=== PATIENT | female | born 1960 | race African-American/Black ===

== ENCOUNTER 2022-06-08 13:37 | Outpatient (CLI) | payer MEDICARE, OTHER, SELFPAY ==
--- NOTE | 2022-06-08 | ECG_ITS ---
Measurements Intervals [place] Rate: 70 P: 67 NM: 222 QRS: 32 QRSD: 87 T: 91 QT: 396 QTc: 429 Interpretive Statements SINUS RHYTHM WITH FIRST DEGREE AV BLOCK NONSPECIFIC T-WAVE ABNORMALITY BORDERLINE ECG NO PREVIOUS ECG AVAILABLE FOR COMPARISON Electronically Signed On 06-08-2022 15:43:19 CDT by Yury Bella M.D.
--- NOTE | ~2022-06-08 | CT_ITS ---
EXAMINATION: CT LE LT wo con DATE: 06/08/2022 15:43 INDICATION: Left knee osteoarthritis for preoperative planning. TECHNIQUE: High resolution computed tomography (CT) of the left lower limb from the hip through the a nkle was performed without intravenous contrast. Additional sagittal and coronal reconstructions were performed. Automated exposure control and iterative reconstruction technique were employed. The dose -length product was 1754.45 mGy-cm. COMPARISON: None FINDINGS: Severe lateral compartment predominant osteoarthritis at the left knee with 9 degrees genu valgus. Mi ld to moderate joint space narrowing at the lateral side of the left patellofemoral compartment. Smal l cortical irregularity along the anterior weightbearing medial femoral condyle consistent with overl olvin high-grade chondromalacia. Moderate-sized left knee joint effusion. Moderate osteoarthritis at the left hip with anterosuperior predominant nonuniform joint space narrow ing and prominent subarticular cystic change at the anterosuperior acetabulum. Additional polyarticul ar osteoarthritis at the left foot, moderate severity with subarticular cystic changes at the first t arsal metatarsal joint and otherwise mild. Moderate-sized Achilles and plantar calcaneal spurs. The u terus is not identified and has likely been surgically resected. No pathologically enlarged right pel shonda or inguinal lymphadenopathy. IMPRESSION: 1. Polyarticular osteoarthritis throughout the left lower limb, moderate at the left hip, severe at t he lateral compartment of the left knee, moderate at the first tarsal metatarsal joint and otherwise mild. Reviewed, dictated and finalized at location A. IMPRESSION: 1. Polyarticular osteoarthritis throughout the left lower limb, moderate at the left hip, severe at the lateral compartment of the left knee, moderate at the first tarsal metatarsal joint and otherwise mild.
[2022-06-08 15:40] LABS: Hematocrit 39.3 % (37.0-47.0); Hemoglobin 12.8 g/dL (12.0-15.0)
[2022-06-08 15:44] LABS: Albumin Level 4.2 g/dL (3.5-5.1); Estimated Glomerular Filt Rate > 60; Glucose 94 mg/dL (65-110)
== END 2022-06-08 13:38 | disposition home or self-care (01) ==
LOC: ANHIMG 13:48
PROVIDERS: Visit Provider Orthopaedic Surgery
DX: Z01.818 Encounter for other preprocedural examination (principal); I44.0 Atrioventricular block, first degree; M77.32 Calcaneal spur, left foot; I26.99 Other pulmonary embolism without acute cor pulmonale; E78.5 Hyperlipidemia, unspecified; M17.0 Bilateral primary osteoarthritis of knee
CPT/HCPCS: 36415; 73700; 82040; 82565; 82947; 85014; 85018; 93005

== ENCOUNTER 2022-07-12 13:57 | Outpatient (CLI) | payer MEDICARE, OTHER, SELFPAY ==
[2022-07-12 15:40] LABS: Basophils Percent Auto 0.4 % (0.2-1.2); Eosinophils Absolute Auto 0.4 K/mm3 (0-0.3); Eosinophils Percent Auto 5.1 % (0-4.4); Hematocrit 40.1 % (37.0-47.0); Hemoglobin 13.2 g/dL (12.0-15.0); Immature Granulocyte Absolute 0.01 K/mm3 (0.00-0.031); Immature Granulocyte Percent A 0.1 % (0-0.5); Lymphocytes Absolute Auto 1.98 K/mm3 (0.9-3.2); Lymphocytes Percent Auto 26.1 % (18.3-44.2); Mean Corpuscular HGB Conc 32.9 g/dl (32-36); Mean Corpuscular Hemoglobin 29.5 pg (26-34); Mean Corpuscular Volume 89.5 fl (80-100); Mean Platelet Volume 10.8 fl (7.4-10.4); Monocytes Absolute Auto 0.5 K/mm3 (0.1-0.6); Monocytes Percent Auto 6.6 % (2.6-8.5); Neutrophils Absolute Auto 4.7 K/mm3 (1.3-6.7); Neutrophils Percent Auto 61.7 % (45.5-73.1); Platelet Count Result 200 k/mm3 (150-375); Red Blood Count 4.48 M/mm3 (4.2-5.4); Red Cell Distribution Width 13.3 % (11.5-14.5); White Blood Count 7.6 K/mm3 (4.5-10.0)
[2022-07-12 16:06] LABS: Urine Cotinine NEGATIVE
== END 2022-07-12 13:58 | disposition home or self-care (01) ==
LOC: ANHSURGERY 14:11
PROVIDERS: Visit Provider Orthopaedic Surgery
DX: Z01.818 Encounter for other preprocedural examination (principal); M17.12 Unilateral primary osteoarthritis, left knee; Z51.81 Encounter for therapeutic drug level monitoring; Z79.899 Other long term (current) drug therapy
CPT/HCPCS: 80307; 83036; 85025; 87081

== ENCOUNTER 2022-08-03 00:24 | Day surgery (SDC) | payer MEDICARE, OTHER, SELFPAY ==
[2022-07-12 14:18] VITALS: BMI 39.9
--- NOTE | 2022-07-12 15:03 | PC.NURSE ---
Report to the Outpatient Waiting Room, entrance under the green pavilion located off [facility], at time _0600 on date ___08/03/22____. OR Time: _729 . Time changes happen often and if your time is changed the preop area will call you the afternoon before. - You and your visitor will be asked to self-screen and do not enter if you have any COVID symptoms. - Only one visitor and NO children visitors are allowed at this time. - The patient visitor is requested to leave or wait in car when not with patient due to restrictions. - A mask is required within the hospital. Patients may have clear liquids (water, carbonated beverages, clear teas, apple juice) until 3 hours prior to surgery with a maximum of 20 ounces. - No food from midnight until time of surgery - Infants may have breast milk until 4 hours before surgery, formula 6 hours prior to surgery. - Children will be allowed to drink immediately following surgery. If applicable, please bring a bottle or sippy cup to assist with drinking. Juice, water, soda, and popsicles are readily available. For infants on formula, please bring formula the day of surgery. Pacifiers are allowed. Take the following medications with a SIP of water the morning of surgery: __NONE Medications to discontinue per physician __ASPIRIN AND ADVIL 7 DAYS PRE OP. ALL VITAMINS AND SUPPLEMENTS 3 DAYS PRE OP Date to take last dose__ASPIRIN/ADVIL 07/26/22 ALL VIT/SUPP 07/30/22 Please no make-up, nail c[place] islander, hairspray, perfume, deodorant, or body powder the day of surgery. No jewelry (including any body piercings) or valuables the day of surgery, leave them at home. Please take a shower or bath the night before, or the morning of, surgery with an antibacterial soap. Wear comfortable, loose fitting clothing. Children are encouraged to wear pajamas. - Jewelry must be removed prior to entering the operating room. Rings and piercings that are not removed may be cut off. - The hospital will not accept responsibility for valuables. - Please leave all valuables, including medications, at home the day of surgery. If you are going home after surgery, a licensed drivers' cash clerk must drive you home. - NO public transportation without another adult. - We recommend that an adult stay with you for 24 hours following discharge. - We also recommend that you do not drive, make important decision, drink alcoholic beverages, or take any drugs that were not prescribed by your health care provider for at least 24 hours after your discharge time. For Pediatric surgeries, we recommend two adults accompany the child home (only one inside the building at this time). Follow any additional instructions given to you from your surgeon. If you or anyone in your household have experienced Covid symptoms in the past week, please notify your surgeon or the nurse liaison at the phone number below for possible testing. VERBAL AND WRITTEN instructions given to __PATIENT and asked if any additional questions and then verbalized understanding. Patient advised to call surgeon office or pre surgery nurse liaison [phone] if any additional questions.
[2022-07-12 15:25] VITALS: BP 134/80; PULSE 80; RESP 18; TEMP 37.2; O2SAT 100
--- NOTE | 2022-08-02 13:10 | WPDANESEPPF ---
Anes - Initial Pre Proc Eval Procedure: Operation Date: 08/03/22 07:30 Proposed Procedures p Custom Total Left Knee Arthroplasty - Wili Pandey MD Date/Time: 08/02/22 13:10 Surgeon: Wili Pandey MD Pre Op Diagnosis: Prim O A Left Knee Patient Data Age: 62 Gender: F Height: 1.65 m Weight: 108.7 kg Last Vital Signs Temp 37.2 C 07/12/22 15:25 Pulse 80 07/12/22 15:25 Resp 18 07/12/22 15:25 BP 134/80 07/12/22 15:25 Pulse Ox 100 07/12/22 15:25 O2 Del Method Room Air 07/12/22 15:25 Allergies Allergy/AdvReac Type Severity Reaction Status Date / Time Penicillins Allergy Intermediate Rash Verified 08/03/22 06:27 sulfamethoxazole Allergy Intermediate Rash Verified 08/03/22 06:27 [From Bactrim] trimethoprim [From Bactrim] Allergy Intermediate Rash Verified 08/03/22 06:27 Home Medications Medication Instructions Recorded Confirmed Type amlodipine 10 mg-benazepril 20 mg 1 cap PO DAILY 04/12/22 08/03/22 History capsule (Lotrel) cholecalciferol (vitamin D3) 125 125 mcg PO DAILY 04/12/22 08/03/22 History mcg (5,000 unit) capsule (Dialyvite Vitamin D) acetaminophen 500 mg tablet 500 mg PO Q6H PRN Pain 07/12/22 08/03/22 History aspirin 81 mg tablet,delayed 81 mg PO DAILY 07/12/22 08/03/22 History release (Adult Low Dose Aspirin) coQ10 (ubiquinol) 200 mg capsule 400 mg PO DAILY 07/12/22 08/03/22 History ferrous sulfate 325 mg (65 mg 325 mg PO DAILY 07/12/22 08/03/22 History iron) tablet ibuprofen 200 mg tablet (Advil) 400 mg PO Q6H PRN Pain 07/12/22 08/03/22 History multivitamin 1 tablet PO DAILY 07/12/22 08/03/22 History omega-3 fatty acids 1,000 mg PO DAILY 07/12/22 08/03/22 History simvastatin 20 mg tablet (Zocor) 20 mg PO DAILY 07/12/22 08/03/22 History Patient hx anesthesia problems: none Family hx anesthesia problems: none Results Review: All pre-operative results and documents have been reviewed as part of the pre-operative evaluation. [facility] Past Medical History Medical History (Updated 08/02/22 @ 13:11 by Jude Fay MD) Hyperlipidemia Hypertension Osteoarthritis of both knees Ovarian ca Pulmonary embolism (~2018) Surgical History Surgical History H/O ileostomy (~2018) H/O: hysterectomy (~2018) Family History Family History Father Cancer Mother ALS (amyotrophic lateral sclerosis) Sibling Cancer Social History Social History Smoking status: Never smoker Additional smoking assessment comments: DENIES ANY FORM OF TOBACCO USE Alcohol intake: unknown Substance use: unknown Living arrangements: with family Spiritual care concerns: Yes (JEHOVAH WITNESS) Anes - Eval Final PreProcedure Day of Procedure 08/02/22 13:10 Patient weight: obese Heart: regular rate and rhythm Lungs: clear to auscultation and normal air movement Airway: Mallampati scale class II Neurological: alert and oriented Last oral intake: >/= 8 hours ASA classification: III Emergent: no Anesthetic plan: proceed Anesthesia type and monitoring: general LMA Results Review: All pre-operative results and documents have been reviewed as part of the pre-operative evaluation. Informed Consent: The patient's anesthetic plan and its attendant risks and benefits were discussed with the patient/family/POA. Questions were solicited and answers provided to the satisfaction of the patient/family/POA.
--- NOTE | 2022-08-02 13:11 | WPDANESPNB ---
Anes - Peripheral Nerve Block Date/Time: 08/02/22 13:11 I have discussed with the patient/family/POA the placement of a peripheral nerve block for post-operative pain management, including associated risks, benefits, complications, and side effects. Alternative methods of post-operative analgesia were detailed. Questions were solicited and answers provided to the satisfaction of the patient/family/POA. Time-Out: A pre-procedural Time-Out was completed immediately before starting the procedure and confirmed: Patient Identification, Site, Procedure, Patient Position and the Availability of Requisite Equipment. Clinical Indications: Acute post-operative pain management requested by the operative surgeon. Nerve Block Insertion Note Anes-nerve block: adductor canal Patient position: supine Skin prep: chlorhexidine Needle: 22 gauge, stimulating, insulated echogenic needle. Needle length: 80 mm Technique: ultrasound Technique comment: in plane Injectate: bupivacaine 0.5% with epi 5 mcg/ml (30cc) Observations: tolerated well Complications: none Procedure start time:: 720 Procedure end time:: 725
[2022-08-03] VITALS (12 sets, daily range): BP systolic 105–140; BP diastolic 68–74; PULSE 75–96; RESP 13–20; TEMP 36.1–37.1; O2SAT 86–100
--- NOTE | ~2022-08-03 | XR_ITS ---
EXAMINATION: XR knee LT 2V DATE: 08/03/2022 10:31 INDICATION: Total left knee arthroplasty. Postop. TECHNIQUE: 2 views of left knee were obtained. COMPARISON: Left knee radiographs 05/15/2022 FINDINGS: There is a total left knee arthroplasty with patellar resurfacing in near-anatomic alignmen t. No fracture. There is gas in the knee joint and soft tissues, consistent with recent surgery. IMPRESSION: 1. Total left knee arthroplasty in near-anatomic alignment. Reviewed, dictated and finalized at location A.
[2022-08-03] MEDS: ACETAMINOPHEN 500 MG TABLET 1000 MG PO (06:31)
[2022-08-03] MEDS: LACTATED RINGERS 1,000 ML 30 ML IV CONT ×2 (06:47→10:12)
[2022-08-03] MEDS: TRANEXAMIC ACID 1,000MG/ISO100 1,000 MG/100 ML BAG 200 MG IVPB (07:08)
--- NOTE | 2022-08-03 07:32 | WPDHPUPDATE1 ---
History and Physical Update Update Date/Time: 08/03/22 07:32 History and Physical has been reviewed, including an updated exam of the patient. There are NO changes in the patient's condition. Risks, benefits, and alternatives have been discussed and questions answered. Patient agrees to proceed with procedure.
[2022-08-03] MEDS: ceFAZolin 2 GM/D5W 50 ML 2 GM/50 ML BAG IVPB ×2 (07:40→16:15)
[2022-08-03] MEDS: GENTAMICIN BONE CEMENT REFOBACIN 1 EACH TOPICAL (08:22)
[2022-08-03] MEDS: TRANEXAMIC ACID 1,000 MG/10 ML AMPUL 1000 MG IV PUSH (09:45)
--- NOTE | 2022-08-03 11:44 | ADMGEN ---
This patient, Juana Mcclure, was admitted to 2 Medical Room 244-. Patient/family oriented to hospital policies and general routines including ID bracelet, bed and alarms, visiting hours, pain management, procedures, bathroom and other care routines, personal items, smoking policy, room service/diet, and visiting hours. Information on how to activate the Rapid Response Team has been discussed. Patient/Family are encouraged to report perceived risks to care and to ask questions if they do not understand what they are told or what they should do.
[2022-08-03] MEDS: ONDANSETRON INJ 4 MG/2 ML VIAL IV PUSH ×2 (12:10→17:26)
[2022-08-03] MEDS: SODIUM CHLORIDE 0.9% IV 1,000 ML 125 ML IV CONT (12:11)
[2022-08-03] MEDS: lisinopriL 20 MG TABLET BY MOUTH (12:12)
[2022-08-03] MEDS: FERROUS SULFATE 324 MG TABLET PO (12:12)
[2022-08-03] MEDS: amLODIPine BESYLATE 5 MG TABLET 10 MG BY MOUTH (12:12)
[2022-08-03] MEDS: oxyCODONE HCL (*CRX) 5 MG TAB IR 10 MG PO (12:37)
--- NOTE | 2022-08-03 16:02 | P.OP_ITS ---
Procedure Note - Detailed Date of Procedure 08/03/22 Pre-op Diagnosis Prim O A Left Knee Post-op Diagnosis Same Procedure Performed Total knee arthroplasty, left. Surgeon Wili Pandey MD Bank Teller Machine Mechanic Geri Du PA-C Anesthesia General and Regional (Subsartorial block.) Findings Custom TKA with anatomic fit. Good bone quality. No releases required. Description of Procedure Preoperative antibiotics were given. The limb was prepped and draped in the usual sterile fashion with a well-padded tourniquet high on the thigh. The limb was exsanguinated and the tourniquet inflated to 300 mmHg. A longitudinal incision was created just medial to the patella. A trivector approach to the knee was performed. Arthrotomy was taken down through the joint capsule. No significant releases were initially taken. The femur was exposed and the F1 jig was applied. The coring tool was used to remove the cartilage for the F2 jig to sit flush with the bone. The jig was pinned and the distal cut carefully taken. Caliper measurements confirmed appropriate bony resections according to the preoperative templated plan. The F4 cutting jig for the femur was applied, at the standard rotation. The AP and anterior chamfer cuts were taken. The F5 jig was applied and the posterior chamfer cuts were taken. The tibia was prepared using the T1 jig, after removing cartilage for the jig contact points. Proper alignment was checked with the alignment rafael. The tibia was cut using the T1u guide. Gap balancing was performed. Gap measurements were taken and the knee was trialed. Excellent alignment and soft tissue balancing was confirmed. The posterior cruciate ligament was recessed along the proximal tibia. The patella was cut for resurfacing. Three lug holes were drilled. Meniscal remnants were removed. The trial components were assembled. Excellent range of motion and proper soft tissue balancing were confirmed throughout the full range of motion. Patellar tracking was excellent. The knee was copiously irrigated periodically throughout the procedure. The real implants were cemented into position. Excess cement was carefully removed. The wound was closed in layers with interrupted #1 Vicryl suture, 2-0 strata fix suture, 0 strata fix suture, 2-0 strata fix suture. Steri-Strips placed on the skin with the knee flexed. Sterile bulky dressing applied. The patient was brought to the recovery room in stable condition. There were no complications. Physician kindergarten teacher assistant, Geri Du PA-C, required for surgery; including patient positioning, draping, tissue retraction, maintaining instrument position, cement removal, wound closure, and dressing placement. Implants Conformis Custom total knee arthroplasty. Cemented. Cruciate retaining .Round patella. Estimated Blood Loss -100.0 Urine Output 300 Drains No Complications No immediate complications Condition Stable Disposition PACU [facility] Billing Surgery - Charge Forward: Surgery Billing
[2022-08-03] MEDS: SENNA/DOCUSATE SODIUM TABLET 2 TAB PO (16:15)
[2022-08-03] MEDS: RIVAROXABAN 10 MG TABLET PO (16:16)
[2022-08-03] MEDS: FAMOTIDINE 20 MG TABLET PO (21:54)
[2022-08-03] MEDS: oxyCODONE HCL (*CRX) 5 MG TAB IR PO (22:00)
[2022-08-04 00:02] VITALS: BP 108/59; PULSE 71; RESP 18; TEMP 35.8; O2SAT 99
[2022-08-04] MEDS: ceFAZolin 2 GM/D5W 50 ML 2 GM/50 ML BAG IVPB ×2 (00:13→08:41)
[2022-08-04 03:53] VITALS: BP 98/63; PULSE 72; RESP 18; TEMP 36.2; O2SAT 97
[2022-08-04 05:48] LABS: Basophils Percent Auto 0.1 % (0.2-1.2); Eosinophils Percent Auto 0.1 % (0-4.4); Hematocrit 31.6 % (37.0-47.0); Hemoglobin 10.4 g/dL (12.0-15.0); Immature Granulocyte Absolute 0.03 K/mm3 (0.00-0.031); Immature Granulocyte Percent A 0.3 % (0-0.5); Lymphocytes Absolute Auto 0.89 K/mm3 (0.9-3.2); Lymphocytes Percent Auto 7.9 % (18.3-44.2); Mean Corpuscular HGB Conc 32.9 g/dl (32-36); Mean Corpuscular Hemoglobin 29.5 pg (26-34); Mean Corpuscular Volume 89.8 fl (80-100); Mean Platelet Volume 11.2 fl (7.4-10.4); Monocytes Absolute Auto 0.9 K/mm3 (0.1-0.6); Monocytes Percent Auto 7.5 % (2.6-8.5); Neutrophils Absolute Auto 9.5 K/mm3 (1.3-6.7); Neutrophils Percent Auto 84.1 % (45.5-73.1); Platelet Count Result 169 k/mm3 (150-375); Red Blood Count 3.52 M/mm3 (4.2-5.4); Red Cell Distribution Width 13.3 % (11.5-14.5); White Blood Count 11.3 K/mm3 (4.5-10.0)
[2022-08-04 05:59] LABS: Anion Gap 7 mmol/L (8-16); Blood Urea Nitrogen 11 mg/dL (7-17); Calcium 8.4 mg/dL (8.4-10.2); Carbon Dioxide 25 mmol/L (22-30); Chloride 105 mmol/L (98-107); Estimated CRCL calculation 85 ml/min; Estimated Glomerular Filt Rate > 60; Glucose 120 mg/dL (65-110); Potassium 3.7 mmol/L (3.4-5.0); Sodium 137 mmol/L (137-145)
[2022-08-04] MEDS: oxyCODONE HCL (*CRX) 5 MG TAB IR 10 MG PO (07:55)
[2022-08-04 08:00] VITALS: PULSE 64; RESP 18; O2SAT 100
--- NOTE | 2022-08-04 08:22 | PM.DS ---
DS: Admitting Diagnosis Discharge Date 08/04/22 Admitting Diagnosis OA knee Left DS: Discharge Diagnosis Discharge Diagnosis (1) Status post total left knee replacement: Code(s): Z96.652 - Presence of left artificial knee joint Status: Acute Assessment and Plan: Postop day 1: Left total knee arthroplasty. Patient tolerated procedure well. No complications. Pain manageable with pain medication. No numbness or tingling. We had a lengthy discussion regarding postoperative wound care, limitations, expectations, and exercises. Patient shows good understanding. She has had initial physical therapy and is tolerating it well. DVT prophylaxis: Lovenox 30 mg b.i.d. for 14 days. Pain medication: Percocet. Prednisone. Patient has followup appointment with Dr. Pandey in 3 weeks. DS: Summary Hospital Course Reason for hospitalization: Total knee arthroplasty Hospital Course: Patient tolerated procedure well. Has had initial PT/OT. Status at Discharge Functional status at discharge: uses cane/walker Overall status at discharge: patient is progressing back to baseline Time Spent with Patient Time attestation: Total time spent providing and/or coordinating discharge services: Exam Narrative: 62-year-old overweight female. Resting comfortably in chair. Alert and oriented x3. No acute distress. Wearing compression socks bilaterally. Dressing intact without drainage. Mild swelling. No ecchymosis. No erythema. No hematoma. Range of motion limited due to pain. 5-85 Calf nontender. Neurologic status intact. No varicosities. Distal pulses palpable. DS: Data Data Completed and Pending Labs on day of discharge: Labs from last 24 hours 08/04/22 08/04/22 05:14 05:14 WBC 11.3 H RBC 3.52 L Hgb 10.4 L Hct 31.6 L MCV 89.8 MCH 29.5 MCHC 32.9 RDW 13.3 Plt Count 169 MPV 11.2 H Immature Gran % (Auto) 0.3 Neut % (Auto) 84.1 H Lymph % (Auto) 7.9 L [place] % (Auto) 7.5 Eos % (Auto) 0.1 Baso % (Auto) 0.1 L Lymph # (Auto) 0.89 L [place] # (Auto) 0.9 H Eos # (Auto) 0.0 Baso # (Auto) 0.0 Abs Immat Gran (auto) 0.03 Absolute Neuts (auto) 9.5 H Absolute Nucleated RBC 0.0 Nucleated RBC % 0.0 Sodium 137 Potassium 3.7 Chloride 105 Carbon Dioxide 25 Anion Gap 7 L BUN 11 Creatinine 0.70 Estim Creat Clear Calc 85 Estimated GFR > 60 Glucose 120 H Calcium 8.4 Discharge Plan Discharge Patient Disposition: Home, Self-Care Discharge Instructions: see green instruction sheets Patient Instructions: Precautions after Total Joint Replacement Surgery (DC), Knee Replacement (DC) Stand Alone Forms: General Discharge Instructions Follow-up/Referrals: Geri Du PA [Physician Tube Coater] - Discharge Medications: New prednisone 5 mg tablet 5 mg PO DAILY 21 Days Qty: 21 0RF oxycodone-acetaminophen 5-325 mg tablet 1 - 2 tablet PO Q4-6H MDD 6 PRN (Reason: pain) Qty: 30 0RF enoxaparin [Lovenox] 30 mg/0.3 mL syringe 30 mg subcut Q12H 14 Days Qty: 8.4 0RF Continued cholecalciferol (vitamin D3) [Dialyvite Vitamin D] 125 mcg (5,000 unit) capsule 125 mcg PO DAILY amlodipine-benazepril [Lotrel] 10-20 mg capsule 1 cap PO DAILY simvastatin [Zocor] 20 mg tablet 20 mg PO DAILY multivitamin Tablet 1 tablet PO DAILY coQ10 (ubiquinol) 200 mg Capsule 400 mg PO DAILY omega-3 fatty acids Capsule 1,000 mg PO DAILY ferrous sulfate 325 mg (65 mg iron) Tablet 325 mg PO DAILY acetaminophen 500 mg Tablet 500 mg PO Q6H PRN (Reason: Pain) aspirin [Adult Low Dose Aspirin] 81 mg Tablet,Delayed Release (Dr/Ec) 81 mg PO DAILY Held ibuprofen [Advil] 200 mg Tablet 400 mg PO Q6H PRN (Reason: Pain) Hold Instructions: Resume on 09/02/22. Hold while taking Xeralto.
[2022-08-04] MEDS: FAMOTIDINE 20 MG TABLET PO (08:42)
[2022-08-04] MEDS: predniSONE 5 MG TABLET PO (08:42)
[2022-08-04] MEDS: SENNA/DOCUSATE SODIUM TABLET 2 TAB PO (08:42)
[2022-08-04] MEDS: amLODIPine BESYLATE 5 MG TABLET 10 MG BY MOUTH (08:43)
[2022-08-04] MEDS: lisinopriL 20 MG TABLET BY MOUTH (08:43)
[2022-08-04] MEDS: FERROUS SULFATE 324 MG TABLET PO (08:43)
[2022-08-04 10:00] VITALS: BP 120/61; PULSE 64; RESP 18; TEMP 36.7; O2SAT 100
--- NOTE | 2022-08-04 10:18 | WPDANESPN ---
Anes - Prog Note Post-Op Date/Time: 08/04/22 10:18 Cardiovascular status: normal Respiratory status: normal Airway patency: baseline Mental status: baseline Post-Op hydration status: normal Vital Signs: Last Vital Signs Temp 36.2 C L 08/04/22 03:53 Pulse 72 08/04/22 03:53 Resp 18 08/04/22 03:53 BP 98/63 L 08/04/22 03:53 Pulse Ox 97 08/04/22 03:53 O2 Del Method Room Air 08/03/22 14:15 O2 Flow Rate 8 08/03/22 10:45 Pain Score (VAS): 12/15 I/O: Intake & Output 08/03/22 08/04/22 08/04/22 23:59 07:59 15:59 Intake Total 1170 390 240 Output Total 300 Balance 1170 90 240 Laboratory Tests 08/04/22 05:14 08/04/22 05:14 08/04/22 08/04/22 05:14 05:14 WBC 11.3 H RBC 3.52 L Hgb 10.4 L Hct 31.6 L MCV 89.8 MCH 29.5 MCHC 32.9 RDW 13.3 Plt Count 169 MPV 11.2 H Immature Gran % (Auto) 0.3 Neut % (Auto) 84.1 H Lymph % (Auto) 7.9 L [place] % (Auto) 7.5 Eos % (Auto) 0.1 Baso % (Auto) 0.1 L Lymph # (Auto) 0.89 L [place] # (Auto) 0.9 H Eos # (Auto) 0.0 Baso # (Auto) 0.0 Abs Immat Gran (auto) 0.03 Absolute Neuts (auto) 9.5 H Absolute Nucleated RBC 0.0 Nucleated RBC % 0.0 Sodium 137 Potassium 3.7 Chloride 105 Carbon Dioxide 25 Anion Gap 7 L BUN 11 Creatinine 0.70 Estim Creat Clear Calc 85 Estimated GFR > 60 Glucose 120 H Calcium 8.4 Post-procedural complaints: nausea Patient Feedback: Patient satisfied with anesthetic care.
== END 2022-08-04 13:10 | disposition home or self-care (01) ==
LOC: ANHSURGERY 09:38 → ANH2MED 11:20
PROVIDERS: Physician Assistant Surgical; Visit Provider Orthopaedic Surgery
PROC: (CPT 27447; principal; 2022-08-03 07:30)
DX: M17.12 Unilateral primary osteoarthritis, left knee (principal); Z86.711 Personal history of pulmonary embolism
CPT/HCPCS: 64447; 27447; 36415; 73560; 80048; 85025; 97110; 97116; 97161; 97165; 97530; 97535; A9270; C1713; C1776; J0131; J0171; J0690; J1100; J1170; J1885; J2250; J2270; J2370; J2405; J2704; J2795; J3010; J7030; J7120; J7512

== ENCOUNTER 2023-02-09 13:05 | Outpatient (CLI) | payer MEDICARE, OTHER, SELFPAY ==
--- NOTE | ~2023-02-09 | CT_ITS ---
EXAMINATION: CT LE RT wo con DATE: 02/09/2023 14:13 INDICATION: Osteoarthritis at the right knee for preoperative planning. TECHNIQUE: High resolution computed tomography (CT) of the right lower limb from the hip through the ankle was performed without intravenous contrast. Additional sagittal and coronal reconstructions wer e performed. Automated exposure control and iterative reconstruction technique were employed. The dos e-length product was 1870.91 mGy-cm. COMPARISON: None FINDINGS: 17 degree genu valgus with at least moderate joint space narrowing the lateral compartment which coul d be underestimated on nonweightbearing imaging. Subarticular cystlike changes along the lateral tibi al plateau suggesting overlying high-grade chondral malacia. Moderate size marginal osteophytes at th e lateral and patellofemoral compartments and small marginal osteophytes at the medial compartment. S mall right knee joint effusion. Bone alignment is otherwise normal. Additional mild to moderate osteoarthritis at the right hip and m ild osteoarthritis at the right ankle, the latter with additional likely degenerative subarticular cy stlike changes along the posterior tibial plafond and. Mild polyarticular osteoarthritis in the right mid and forefoot. The uterus is not identified and has likely been surgically resected. Visualized p pan is otherwise unremarkable. No pathologically enlarged pelvic or inguinal lymphadenopathy. IMPRESSION: 1. 17 degrees genu valgus with at least moderate severity lateral compartment predominant tricompartm ental osteoarthritis at the right knee and small right knee joint effusion. Reviewed, dictated and finalized at location B. IMPRESSION: 1. 17 degrees genu valgus with at least moderate severity lateral compartment p redominant tricompartmental osteoarthritis at the right knee and small right kn ee joint effusion.
== END 2023-02-09 13:06 | disposition home or self-care (01) ==
PROVIDERS: Visit Provider Orthopaedic Surgery
DX: M17.11 Unilateral primary osteoarthritis, right knee (principal)
CPT/HCPCS: 73700

== ENCOUNTER 2023-03-26 09:39 | Outpatient (CLI) | payer MEDICARE, OTHER, SELFPAY ==
[2023-03-26 11:16] LABS: Basophils Percent Auto 0.6 % (0.2-1.2); Eosinophils Absolute Auto 0.3 K/mm3 (0-0.3); Eosinophils Percent Auto 4.6 % (0-4.4); Hematocrit 40.5 % (37.0-47.0); Hemoglobin 13.4 g/dL (12.0-15.0); Immature Granulocyte Absolute 0.01 K/mm3 (0.00-0.031); Immature Granulocyte Percent A 0.1 % (0-0.5); Lymphocytes Absolute Auto 1.75 K/mm3 (0.9-3.2); Lymphocytes Percent Auto 25.9 % (18.3-44.2); Mean Corpuscular HGB Conc 33.1 g/dl (32-36); Mean Corpuscular Hemoglobin 29.8 pg (26-34); Mean Corpuscular Volume 90.2 fl (80-100); Mean Platelet Volume 10.5 fl (7.4-10.4); Monocytes Absolute Auto 0.5 K/mm3 (0.1-0.6); Monocytes Percent Auto 7.7 % (2.6-8.5); Neutrophils Absolute Auto 4.1 K/mm3 (1.3-6.7); Neutrophils Percent Auto 61.1 % (45.5-73.1); Platelet Count Result 200 k/mm3 (150-375); Red Blood Count 4.49 M/mm3 (4.2-5.4); Red Cell Distribution Width 13.2 % (11.5-14.5); White Blood Count 6.8 K/mm3 (4.5-10.0)
[2023-03-26 11:31] LABS: Hemoglobin A1C 5.9 % (<5.7)
[2023-03-26 11:32] LABS: Albumin Level 4.6 g/dL (3.5-5.1); Estimated Glomerular Filt Rate > 60; Glucose 100 mg/dL (65-110)
[2023-03-26 11:46] LABS: Urine Cotinine NEGATIVE
== END 2023-03-26 09:40 | disposition home or self-care (01) ==
PROVIDERS: Visit Provider Orthopaedic Surgery
DX: M17.11 Unilateral primary osteoarthritis, right knee (principal); Z01.818 Encounter for other preprocedural examination
CPT/HCPCS: 80307; 82040; 82565; 82947; 83036; 85025; 87081

== ENCOUNTER 2023-04-19 00:43 | Day surgery (SDC) | payer MEDICARE, OTHER, SELFPAY ==
[2023-03-26 09:36] VITALS: BMI 38.4
--- NOTE | 2023-03-26 09:37 | PC.NURSE ---
PRE-OP INSTRUCTIONS, PLEASE READ CAREFULLY Report to the Outpatient Waiting Room, entrance under the green pavilion located off [facility], at time _0600_ on date _04/19/23_. Planned Procedure Time: _0730_. PACK A SMALL OVERNIGHT BAG AN LEAVE IN THE CAR ALONG WITH YOUR WALKER Time changes happen often and if your time is changed the preop area will call you the afternoon before. - You and your visitor will be asked to self-screen and do not enter if you have any COVID symptoms. - A mask is optional within the hospital at this time. -VISITING HOURS 8AM-8PM Patients may have clear liquids (water, carbonated beverages, clear teas, apple juice) until 3 hours prior to surgery (0430 AM) with a maximum of 20 ounces. - No food from midnight until time of surgery Take the following medications with a SIP of water the morning of surgery: _TYLENOL IF NEEDED_ DO NOT STOP ANY OF YOUR OTHER PRESCRIPTION MEDICATIONS PRIOR TO SURGERY ?EXCEPT THE FOLLOWING Medications to discontinue per DR. CRANDALL - _ASPIRIN 7 DAYS PRIOR TO SURGERY, Date to take last dose 04/11/23_ Medications to discontinue per ANESTHESIA - _MULTIVITAMIN & SUPPLEMENTS 3 DAYS PRIOR TO SURGERY, Date to take last dose 04/15/23_ Please no make-up, nail azeri, hairspray, perfume, deodorant, or body powder the day of surgery. No jewelry (including any body piercings) or valuables the day of surgery, leave them at home. Please take a shower or bath the night before, or the morning of, surgery with an antibacterial soap. Wear comfortable, loose fitting clothing. - Jewelry must be removed prior to entering the operating room. Rings and piercings that are not removed may be cut off. - The hospital will not accept responsibility for valuables. - Please leave all valuables, including medications, at home the day of surgery. If you are going home after surgery, a licensed train driver must drive you home. - NO public transportation without another adult if you receive anesthesia. - We recommend that an adult stay with you for 24 hours following discharge. - We also recommend that you do not drive, make important decision, drink alcoholic beverages, or take any drugs that were not prescribed by your health care provider for at least 24 hours after your discharge time. Follow any additional instructions given to you from your surgeon. If you or anyone in your household have experienced Covid symptoms in the past week, please notify your surgeon or the nurse liaison at the phone number below for possible testing. Telephone instructions given to _PATIENT_and asked if any additional questions and then verbalized understanding. Patient advised to call surgeon office or pre surgery nurse liaison [phone] if any additional questions.
[2023-03-26 10:03] VITALS: BP 122/70; PULSE 70; RESP 18; TEMP 36.8; O2SAT 100
[2023-04-19] VITALS (14 sets, daily range): BP systolic 112–133; BP diastolic 57–85; PULSE 67–93; RESP 15–20; TEMP 36.2–36.9; O2SAT 94–100; BMI 37.8
--- NOTE | ~2023-04-19 | XR_ITS ---
EXAMINATION: [id number] DATE: 04/19/2023 12:49 CDT INDICATION: Right knee arthroplasty TECHNIQUE: 2 views right knee FINDINGS: There is a right total knee arthroplasty in expected position. Subcutaneous gas with fluid and air in the joint are consistent with recent surgery. No evidence of periprosthetic fracture. IMPRESSION: 1. Recent right total knee arthroplasty. Reviewed, dictated and finalized at location L.
--- NOTE | 2023-04-19 07:17 | WPDHPUPDATE1 ---
History and Physical Update Update Date/Time: 04/19/23 07:17 History and Physical has been reviewed, including an updated exam of the patient. There are NO changes in the patient's condition. Risks, benefits, and alternatives have been discussed and questions answered. Patient agrees to proceed with procedure.
--- NOTE | 2023-04-19 07:29 | WPDANESEPPF ---
Anes - Initial Pre Proc Eval Procedure: Operation Date: 04/19/23 09:00 Proposed Procedures p Right Custom Total Knee Arthroplasty - Wili Pandey MD Date/Time: 04/19/23 07:29 Surgeon: Wili Pandey MD Pre Op Diagnosis: primary oa right knee Patient Data Age: 62 Gender: F Height: 1.65 m Weight: 104.8 kg Last Vital Signs Temp 36.8 C 03/26/23 10:03 Pulse 70 03/26/23 10:03 Resp 18 03/26/23 10:03 BP 122/70 03/26/23 10:03 Pulse Ox 100 03/26/23 10:03 O2 Del Method Room Air 03/26/23 10:03 Allergies Allergy/AdvReac Type Severity Reaction Status Date / Time Penicillins Allergy Intermediate Rash Verified 03/26/23 09:59 sulfamethoxazole Allergy Intermediate Rash Verified 03/26/23 09:59 [From Bactrim] trimethoprim [From Bactrim] Allergy Intermediate Rash Verified 03/26/23 09:59 Home Medications Medication Instructions Recorded Confirmed Type amlodipine 10 mg-benazepril 20 mg 1 cap PO DAILY 04/12/22 03/26/23 History capsule (Lotrel) cholecalciferol (vitamin D3) 125 125 mcg PO DAILY 04/12/22 03/26/23 History mcg (5,000 unit) capsule (Dialyvite Vitamin D) acetaminophen 500 mg tablet 500 mg PO Q6H PRN Pain 07/12/22 03/26/23 History aspirin 81 mg tablet,delayed 81 mg PO DAILY 07/12/22 03/26/23 History release (Adult Low Dose Aspirin) coQ10 (ubiquinol) 200 mg capsule 400 mg PO DAILY 07/12/22 03/26/23 History multivitamin 1 tablet PO DAILY 07/12/22 03/26/23 History omega-3 fatty acids 1,000 mg PO DAILY 07/12/22 03/26/23 History simvastatin 20 mg tablet (Zocor) 20 mg PO DAILY 07/12/22 03/26/23 History clindamycin HCl 150 mg capsule 600 mg PO ONCE #4 caps 01/31/23 03/26/23 Rx tumeric 100 mg-raulito 150 mg-olive 1 cap PO DAILY 03/26/23 03/26/23 History 50 mg-oreg 150 mg-caprylate capsule ECG: Date of Service: 06/08/22 Procedure(s): CA 12 lead EKG Accession Number(s): [id number] cc: ~ ? Measurements Intervals? [place]? Rate: ? 70 ? P:? 67 ME: ? 222? QRS:? 32 QRSD: ? 87 ? T:? 91 QT: ? 396? QTc:? 429? Interpretive Statements SINUS RHYTHM WITH FIRST DEGREE AV BLOCK NONSPECIFIC T-WAVE ABNORMALITY BORDERLINE ECG NO PREVIOUS ECG AVAILABLE FOR COMPARISON Electronically Signed On 06-08-2022 15:43:19 CDT by Yury Bella M.D. Patient hx anesthesia problems: none Family hx anesthesia problems: none Results Review: All pre-operative results and documents have been reviewed as part of the pre-operative evaluation. [facility] Past Medical History Medical History Hyperlipidemia Hypertension Osteoarthritis of both knees Ovarian ca Pulmonary embolism (~2018) Surgical History Surgical History H/O ileostomy (~2018) H/O: hysterectomy (~2019) Status post total left knee replacement (~08/03/22) Family History Family History Father Cancer Mother ALS (amyotrophic lateral sclerosis) Sibling Cancer Social History Social History Smoking status: Never smoker Second hand tobacco smoke exposure: No Additional smoking assessment comments: PT DENIES ALL FORMS OF TOBCCO USE Alcohol intake: never Substance use: never Substance use type: does not use Lack of Transportation: No Lack of Food: Never True Current Housing: I Have Housing Concerned About Future Housing: No Difficulty Paying Gas/Electric Bills: No Difficulty Paying for Meds: No Currently Unemployed: No Education: Trade/Vocational Certificate Difficulty w/ Childcare or Family Care: No Eladia
--- NOTE | 2023-04-19 07:30 | WPDANESPNB ---
Anes - Peripheral Nerve Block Date/Time: 04/19/23 07:30 I have discussed with the patient/family/POA the placement of a peripheral nerve block for post-operative pain management, including associated risks, benefits, complications, and side effects. Alternative methods of post-operative analgesia were detailed. Questions were solicited and answers provided to the satisfaction of the patient/family/POA. Time-Out: A pre-procedural Time-Out was completed immediately before starting the procedure and confirmed: Patient Identification, Site, Procedure, Patient Position and the Availability of Requisite Equipment. Clinical Indications: Acute post-operative pain management requested by the operative surgeon. Nerve Block Insertion Note Anes-nerve block: adductor canal right Patient position: supine Skin prep: chlorhexidine Needle: 22 gauge, stimulating, insulated echogenic needle. Needle length: 80 mm Technique: ultrasound Technique comment: in plane Injectate: bupivacaine 0.25% with epi 5 mcg/ml (30cc) Observations: tolerated well Complications: none Procedure start time:: 920 Procedure end time::
[2023-04-19] MEDS: LACTATED RINGERS 1,000 ML 30 ML IV CONT ×2 (08:28→12:21)
[2023-04-19] MEDS: ACETAMINOPHEN 500 MG TABLET 1000 MG PO (08:30)
[2023-04-19] MEDS: TRANEXAMIC ACID 1,000MG/ISO100 1,000 MG/100 ML BAG 200 MG IVPB (08:31)
[2023-04-19] MEDS: ceFAZolin 2 GM/D5W 50 ML 2 GM/50 ML BAG IVPB (09:42)
--- NOTE | 2023-04-19 13:18 | W.PM.PROC2 ---
Procedure Note - Detailed Date of Procedure 04/19/23 Pre-op Diagnosis primary oa right knee Post-op Diagnosis Same Procedure Performed Total knee arthroplasty, right. Surgeon Wili Pandey MD Anesthesia General and Regional (Subsartorial block.) Findings Pie crusting lateral release required. Description of Procedure Preoperative antibiotics were given. The limb was prepped and draped in the usual sterile fashion with a well-padded tourniquet high on the thigh. The limb was exsanguinated and the tourniquet inflated to 300 mmHg. A longitudinal incision was created just medial to the patella. A trivector approach to the knee was performed. Arthrotomy was taken down through the joint capsule. No significant releases were initially taken. The femur was exposed and the F1 jig was applied. The coring tool was used to remove the cartilage for the F2 jig to sit flush with the bone. The jig was pinned and the distal cut carefully taken. Caliper measurements confirmed appropriate bony resections according to the preoperative templated plan. The F4 cutting jig for the femur was applied, at the standard rotation. The AP and anterior chamfer cuts were taken. The F5 jig was applied and the posterior chamfer cuts were taken. The tibia was prepared using the T1 jig, after removing cartilage for the jig contact points. Proper alignment was checked with the alignment rafael. The tibia was cut using the T1u guide. Gap balancing was performed. Gap measurements were taken and the knee was trialed. Excellent alignment and soft tissue balancing was confirmed. A significant pie crusting lateral release of the LCL was performed. The posterior cruciate ligament was recessed only slightly along the proximal tibia. The patella was cut for resurfacing. Three lug holes were drilled. Meniscal remnants were removed. The trial components were assembled. Excellent range of motion and proper soft tissue balancing were confirmed throughout the full range of motion. Patellar tracking was excellent. Slight lateral retinacular release was performed. The knee was copiously irrigated periodically throughout the procedure. The real implants were cemented into position. Excess cement was carefully removed. The wound was closed in layers with interrupted #1 Vicryl suture, #2 strata fix suture, 2-0 strata fix suture, 3-0 strata fix suture. Steri-Strips placed on the skin with the knee flexed. Sterile bulky dressing applied. The patient was brought to the recovery room in stable condition. There were no complications. Implants [employer] total knee arthroplasty. Cemented. Cruciate retaining. 10 mm insert. 32 mm oval patella. Estimated Blood Loss -50.0 Drains No Complications No immediate complications Condition Stable Disposition PACU [facility] Billing Surgery - Charge Forward: Surgery Billing
--- NOTE | 2023-04-19 13:35 | ADMGEN ---
This patient, Juana Mcclure, was admitted to 2 Medical Room 260-. Patient/family oriented to hospital policies and general routines including ID bracelet, bed and alarms, visiting hours, pain management, procedures, bathroom and other care routines, personal items, smoking policy, room service/diet, and visiting hours. Information on how to activate the Rapid Response Team has been discussed. Patient/Family are encouraged to report perceived risks to care and to ask questions if they do not understand what they are told or what they should do.
[2023-04-19] MEDS: oxyCODONE HCL (*CRX) 5 MG TAB IR PO ×3 (13:47→21:55)
[2023-04-19] MEDS: SODIUM CHLORIDE 0.9% IV 1,000 ML 125 ML IV CONT (13:48)
[2023-04-19] MEDS: METOCLOPRAMIDE HCL INJ 10 MG/2 ML VIAL IV PUSH (14:41)
--- NOTE | 2023-04-19 16:25 | PCPTNOTE ---
On 04/19/23, the student, [Malia Camp], provided care and completed [facility] documentation on this patient. I have reviewed the student's documentation and agree with the findings.
--- NOTE | 2023-04-19 16:40 | PM.DS ---
DS: Admitting Diagnosis Discharge Date 04/20/23 Admitting Diagnosis 04/19/23 Pre-op Diagnosis primary oa right knee Post-op Diagnosis Same Procedure Performed Total knee arthroplasty, right. DS: Discharge Diagnosis Discharge Diagnosis (1) Status post total knee replacement, right: Code(s): Z96.651 - Presence of right artificial knee joint Status: Acute (2) Orthopedic aftercare for joint replacement: Qualifiers: Joint replacement surgery site: knee Laterality: right Qualified Code(s): Z47.1 - Aftercare following joint replacement surgery; Z96.651 - Presence of right artificial knee joint Code(s): Z47.1 - Aftercare following joint replacement surgery Status: Acute DS: Summary Hospital Course Reason for hospitalization: Total knee arthroplasty. Hospital Course: Tolerated surgery well. Progressed appropriately with therapy. Status at Discharge Functional status at discharge: uses cane/walker Overall status at discharge: patient is progressing back to baseline Time Spent with Patient Time attestation: Total time spent providing and/or coordinating discharge services: Exam Const: General: no acute distress Resp: Effort & Inspection: normal respiratory effort Skin: Other: Wound healing well. Mepilex dressing intact. No hematoma or drainage. Neuro: Motor exam (neuro): 5/5 motor strength present throughout Sensory Exam: normal sensation Psych: Mental Status: mental status grossly normal Speech and movement: Normal speech and movement present Discharge Plan Discharge Patient Disposition: Home, Self-Care Stand Alone Forms: General Discharge Instructions Discharge Medications: No Action cholecalciferol (vitamin D3) [Dialyvite Vitamin D] 125 mcg (5,000 unit) capsule 125 mcg PO DAILY amlodipine-benazepril [Lotrel] 10-20 mg capsule 1 cap PO DAILY simvastatin [Zocor] 20 mg tablet 20 mg PO DAILY multivitamin Tablet 1 tablet PO DAILY coQ10 (ubiquinol) 200 mg Capsule 400 mg PO DAILY omega-3 fatty acids Capsule 1,000 mg PO DAILY acetaminophen 500 mg Tablet 500 mg PO Q6H PRN (Reason: Pain) aspirin [Adult Low Dose Aspirin] 81 mg Tablet,Delayed Release (Dr/Ec) 81 mg PO DAILY ghdrslu-yzvl-jummo-oreg-capryl 100 mg-150 mg- 50 mg-150 mg Capsule 1 cap PO DAILY Quality VTE Prophylaxis VTE prophylaxis: mechanical ordered (MARILYN bethanye and SCDs)
[2023-04-19] MEDS: SENNA/DOCUSATE SODIUM TABLET 2 TAB PO (16:42)
[2023-04-19] MEDS: MELOXICAM 7.5 MG TABLET PO (16:42)
[2023-04-19] MEDS: ceFAZolin 1 GM/NS 50 ML 1 GM/50 ML BAG IVPB (16:42)
[2023-04-19] MEDS: ACETAMINOPHEN 500 MG TABLET PO (20:49)
[2023-04-20] MEDS: ceFAZolin 1 GM/NS 50 ML 1 GM/50 ML BAG IVPB ×2 (00:50→08:32)
[2023-04-20 01:12] VITALS: BP 115/64; PULSE 87; RESP 16; TEMP 36.4; O2SAT 93
[2023-04-20] MEDS: oxyCODONE HCL (*CRX) 5 MG TAB IR PO (05:14)
[2023-04-20 05:18] VITALS: BP 113/61; PULSE 73; RESP 16; TEMP 36.4; O2SAT 98
[2023-04-20 05:40] LABS: Basophils Percent Auto 0.2 % (0.2-1.2); Eosinophils Percent Auto 0.1 % (0-4.4); Hematocrit 34.2 % (37.0-47.0); Hemoglobin 11.2 g/dL (12.0-15.0); Immature Granulocyte Absolute 0.04 K/mm3 (0.00-0.031); Immature Granulocyte Percent A 0.3 % (0-0.5); Lymphocytes Absolute Auto 0.86 K/mm3 (0.9-3.2); Lymphocytes Percent Auto 7.3 % (18.3-44.2); Mean Corpuscular HGB Conc 32.7 g/dl (32-36); Mean Corpuscular Hemoglobin 29.6 pg (26-34); Mean Corpuscular Volume 90.5 fl (80-100); Mean Platelet Volume 11.3 fl (7.4-10.4); Monocytes Percent Auto 8.6 % (2.6-8.5); Neutrophils Absolute Auto 9.8 K/mm3 (1.3-6.7); Neutrophils Percent Auto 83.5 % (45.5-73.1); Platelet Count Result 170 k/mm3 (150-375); Red Blood Count 3.78 M/mm3 (4.2-5.4); Red Cell Distribution Width 13.2 % (11.5-14.5); White Blood Count 11.8 K/mm3 (4.5-10.0)
[2023-04-20 05:58] LABS: Anion Gap 7 mmol/L (8-16); Blood Urea Nitrogen 11 mg/dL (7-17); Calcium 8.3 mg/dL (8.4-10.2); Carbon Dioxide 27 mmol/L (22-30); Chloride 105 mmol/L (98-107); Estimated CRCL calculation 97 ml/min; Estimated Glomerular Filt Rate > 60; Glucose 163 mg/dL (65-110); Potassium 3.7 mmol/L (3.4-5.0); Sodium 139 mmol/L (137-145)
[2023-04-20] MEDS: predniSONE 5 MG TABLET PO (08:30)
[2023-04-20] MEDS: SENNA/DOCUSATE SODIUM TABLET 2 TAB PO (08:30)
[2023-04-20] MEDS: amLODIPine BESYLATE 5 MG TABLET 10 MG PO (08:30)
[2023-04-20] MEDS: CHOLECALCIFEROL 1,000 UNITS TABLET 5000 UNITS PO (08:30)
[2023-04-20] MEDS: ASPIRIN 81 MG ENTERIC TABLET PO (08:30)
[2023-04-20] MEDS: ENOXAPARIN 40 MG/0.4 ML SYRINGE SUB-Q (08:31)
[2023-04-20] MEDS: polyethylene glycoL 3350 17 GM POWD.PACK PO (08:32)
[2023-04-20] MEDS: MELOXICAM 7.5 MG TABLET PO (08:32)
[2023-04-20] MEDS: lisinopriL 20 MG TABLET PO (08:32)
[2023-04-20] MEDS: MULTIVITAMINS THERAPEUTIC TAB (*BKC) 1 TABLET PO (08:32)
[2023-04-20] MEDS: SIMVASTATIN 20 MG TABLET PO (08:32)
[2023-04-20] MEDS: oxyCODONE HCL (*CRX) 5 MG TAB IR 10 MG PO (09:27)
[2023-04-20 12:23] VITALS: BP 132/63; PULSE 81; RESP 17; TEMP 36.4; O2SAT 97
--- NOTE | 2023-04-20 12:58 | P.PNAN_ITS ---
Anes - Prog Note Post-Op Date/Time: 04/20/23 12:58 Vital Signs: Last Vital Signs Temp 36.4 C 04/20/23 12:23 Pulse 81 04/20/23 12:23 Resp 17 04/20/23 12:23 BP 132/63 04/20/23 12:23 Pulse Ox 97 04/20/23 12:23 O2 Del Method Room Air 04/20/23 10:00 O2 Flow Rate 10 04/19/23 12:30 Pain Score (VAS): 2 I/O: Intake & Output 04/19/23 04/20/23 04/20/23 23:59 07:59 15:59 Intake Total 1290 450 290 Output Total 600 500 200 Balance 690 -50 90 Laboratory Tests 04/20/23 04:49 04/20/23 04:49 04/20/23 04:49 WBC 11.8 H RBC 3.78 L Hgb 11.2 L Hct 34.2 L MCV 90.5 MCH 29.6 MCHC 32.7 RDW 13.2 Plt Count 170 MPV 11.3 H Immature Gran % (Auto) 0.3 Neut % (Auto) 83.5 H Lymph % (Auto) 7.3 L [place] % (Auto) 8.6 H Eos % (Auto) 0.1 Baso % (Auto) 0.2 Lymph # (Auto) 0.86 L [place] # (Auto) 1.0 H Eos # (Auto) 0.0 Baso # (Auto) 0.0 Abs Immat Gran (auto) 0.04 H Absolute Neuts (auto) 9.8 H Absolute Nucleated RBC 0.0 Nucleated RBC % 0.0 Sodium 139 Potassium 3.7 Chloride 105 Carbon Dioxide 27 Anion Gap 7 L BUN 11 Creatinine 0.60 L Estim Creat Clear Calc 97 Estimated GFR > 60 Glucose 163 H Calcium 8.3 L Patient Feedback: Patient satisfied with anesthetic care.
--- NOTE | 2023-04-20 14:01 | PCCCNOTE ---
On 04/20/23, the student, [Lucina Palomino ], provided care and completed [facility] documentation on this patient. I have reviewed the student's documentation and agree with the findings.
== END 2023-04-20 12:45 | disposition home or self-care (01) ==
LOC: ANHSURGERY 06:27 → ANH2MED 13:21
PROVIDERS: Visit Provider Orthopaedic Surgery
PROC: (CPT 27447; principal; 2023-04-19 09:00)
DX: M17.11 Unilateral primary osteoarthritis, right knee (principal); G89.18 Other acute postprocedural pain; I10 Essential (primary) hypertension; E78.5 Hyperlipidemia, unspecified; Z86.711 Personal history of pulmonary embolism; Z85.43 Personal history of malignant neoplasm of ovary; E66.9 Obesity, unspecified; Z68.37 Body mass index [BMI] 37.0-37.9, adult; Z79.82 Long term (current) use of aspirin
CPT/HCPCS: 27447; 64447; 36415; 73560; 80048; 85025; 97110; 97116; 97161; 97165; 97530; 97535; A9270; C1713; C1776; J0171; J0690; J1100; J1170; J1650; J1885; J2250; J2270; J2405; J2704; J2765; J2795; J3010; J7030; J7120; J7512

== ENCOUNTER 2024-05-10 10:36 | Outpatient (CLI) | payer MEDICARE, OTHER, SELFPAY ==
--- NOTE | ~2024-05-10 | XR_ITS ---
EXAM: XR knee RT 3V DATE: 05/10/2024 10:52 HISTORY: Z96.651 - Presence of right artificial knee joint FU . COMPARISON: 06/11/2023, images only. FINDINGS: Decreased mineralization. No fracture or dislocation. No lytic or blastic lesion. Joint sp aces are uncomplicated right total knee arthroplasty hardware. No erosion or periosteal change. Soft tissues within normal limits. Small volume joint fluid. IMPRESSION: No acute osseous finding in the right knee. No radiographic evidence of hardware-related complication. Reviewed, dictated and finalized at location K. IMPRESSION: No acute osseous finding in the right knee. No radiographic evidenc e of hardware-related complication.
== END 2024-05-10 10:37 | disposition home or self-care (01) ==
LOC: ANHIMG 10:40
PROVIDERS: Visit Provider Orthopaedic Surgery
DX: Z96.651 Presence of right artificial knee joint (principal)
CPT/HCPCS: 73562